=== PATIENT | female | born 1965 | race Caucasian/White ===

== ENCOUNTER 2021-01-28 10:23 | Emergency (ER) | payer BC ==
[~2021-01-28] VITALS: Ht 157.5 cm; Wt 57.3 kg
[2021-01-28 10:45] VITALS: BP 119/77
[2021-01-28] MEDS ORDERED: rabies vaccine (PCEC)/PF 2.5 unit kit IMVAC ONE (11:25)
[2021-01-28] MEDS ORDERED: rabies immune globulin/PF 150 unit/ml inj IMVAC STA (11:25)
[2021-01-28] MEDS ORDERED: TETanus/Pertussis (Acell)/Diphther VAC/PF (Tdap-Adult) 0.5ml syringe IMVAC ONE (12:30)
== END 2021-01-28 13:30 | disposition home or self-care (01) ==
LOC: ER 10:24
DX: S40.022A Contusion of left upper arm, initial encounter (principal); S40.021A Contusion of right upper arm, initial encounter; W54.0XXA Bitten by dog, initial encounter; Y93.89 Activity, other specified; Y92.89 Other specified places as the place of occurrence of the external cause; Y99.8 Other external cause status
CPT/HCPCS: 90375; 90471; 90472; 90675; 90715; 96372; 99284

== ENCOUNTER 2021-01-31 05:17 | Emergency (ER) | payer BC ==
[~2021-01-31] VITALS: Ht 157.5 cm; Wt 57.3 kg
[2021-01-31 05:27] VITALS: BP 122/73
[2021-01-31] MEDS ORDERED: rabies vaccine (PCEC)/PF 2.5 unit kit IMVAC ONE (06:00)
== END 2021-01-31 07:18 | disposition home or self-care (01) ==
LOC: ER 05:17
DX: S40.022D Contusion of left upper arm, subsequent encounter (principal); S40.021D Contusion of right upper arm, subsequent encounter; Z23 Encounter for immunization; Z20.3 Contact with and (suspected) exposure to rabies; W54.0XXD Bitten by dog, subsequent encounter
CPT/HCPCS: 90471; 90675; 99281

== ENCOUNTER 2021-02-04 04:50 | Emergency (ER) | payer BC ==
[~2021-02-04] VITALS: Ht 157.5 cm; Wt 57.0 kg
[2021-02-04] MEDS ORDERED: rabies vaccine (PCEC)/PF 2.5 unit kit IMVAC ONE (04:55)
[2021-02-04 04:59] VITALS: BP 108/68
== END 2021-02-04 05:44 | disposition home or self-care (01) ==
LOC: ER 04:51
DX: Z23 Encounter for immunization (principal)
CPT/HCPCS: 90471; 90675; 99281

== ENCOUNTER 2021-02-11 05:07 | Emergency (ER) | payer BC ==
[~2021-02-11] VITALS: Ht 157.5 cm; Wt 57.0 kg
[2021-02-11 05:17] VITALS: BP 107/74
--- NOTE | 2021-02-11 05:21 | NUR ---
Pt presents for 4th shot in series of rabies vaccine
--- NOTE | 2021-02-11 05:22 | NUR ---
Pt AAOX4, no s/sx of acute distress noted at this time. Respirations even, unlabored. Will continue to monitor.
[2021-02-11] MEDS ORDERED: rabies vaccine (PCEC)/PF 2.5 unit kit IMVAC ONE (05:35)
== END 2021-02-11 06:00 | disposition home or self-care (01) ==
LOC: ER 05:08
DX: Z23 Encounter for immunization (principal)
CPT/HCPCS: 90471; 90675; 99281